=== PATIENT | male | born 1975 | race African-American/Black ===

== ENCOUNTER → 2018-01-20 | Outpatient (REF) | payer OTHER | LOC: M LAB REF 12:20 | DX: Z72.51 High risk heterosexual behavior (principal) | CPT/HCPCS: 86592 ==

== ENCOUNTER → 2018-02-10 | Outpatient (CLI) | payer OTHER | LOC: M OUTALCOH 07:58 | DX: Z03.89 Encounter for observation for other suspected diseases and conditions ruled out (principal) ==

== ENCOUNTER → 2018-05-12 | Outpatient (REF) | payer OTHER ==
[2018-05-16 14:32] LABS: F001-IGE EGG WHITE <0.10 kU/L (Class 0); F004-IGE WHEAT <0.10 kU/L (Class 0); F013-IGE PEANUT <0.10 kU/L (Class 0); F014-IGE SOYBEAN <0.10 kU/L (Class 0); F025-IGE TOMATO <0.10 kU/L (Class 0); F026 IgE PORK <0.10 kU/L (Class 0); F027 IgE BEEF <0.10 kU/L (Class 0); F081-IGE CHEDDAR CHEESE <0.10 kU/L (Class 0); F083 IgE CHICKEN <0.10 kU/L (Class 0)
== END ==
LOC: M LAB REF 12:44
DX: Z91.018 Allergy to other foods (principal)

== ENCOUNTER 2023-04-17 22:34 | Emergency (ER) | payer MEDICAID, OTHER ==
[~2023-04-17] VITALS: Ht 180.3 cm; Wt 110.9 kg
[2023-04-17 22:35] VITALS: TEMP 97.3; O2SAT 98
[2023-04-18 01:55] LABS: BASO # 0.1 10^3/uL (0.0-0.2); BASO % 0.7 % (0.0-1.0); EOS # 0.1 10^3/uL (0.0-0.5); EOS % 0.9 % (0.0-3.0); HEMATOCRIT 46.9 % (42.0-52.0); HEMOGLOBIN 15.1 g/dl (13.5-17.5); LYMPH # 3.3 10^3/uL (1.5-5.0); LYMPH % 32.8 % (24.0-44.0); MEAN CORPUSCULAR HEMOGLOBIN 26.6 pg (27.0-33.0); MEAN CORPUSCULAR HGB CONC 32.2 g/dl (32.0-36.5); MEAN CORPUSCULAR VOLUME 82.7 fl (80.0-96.0); MONO % 10.5 % (2.0-8.0); NEUTROPHILS # 5.5 10^3/uL (1.5-8.5); PLATELET COUNT, AUTOMATED 349 10^3/uL (150-450); RED BLOOD COUNT 5.67 10^6/uL (4.30-6.10)
[2023-04-18 02:51] LABS: CK-MB VALUE MASS 5.7 NG/ML (<3.6)
[2023-04-18 02:53] LABS: ALBUMIN 3.9 G/DL (3.2-5.2); ALKALINE PHOSPHATASE 93 U/L (46-116); ALT/SGPT 98 U/L (7.0-40); AST/SGOT 64 U/L (<34); BILIRUBIN,TOTAL 0.9 MG/DL (0.3-1.2); BLOOD UREA NITROGEN 15 MG/DL (9-23); CALCIUM LEVEL 8.9 MG/DL (8.5-10.1); CARBON DIOXIDE LEVEL 22 MMOL/L (20-31); CHLORIDE LEVEL 109 MMOL/L (98-107); CREATININE FOR GFR 1.34 MG/DL (0.70-1.30); GLOMERULAR FILTRATION RATE > 60.0 (>60); GLUCOSE, FASTING 93 MG/DL (60-100); POTASSIUM SERUM 3.9 MMOL/L (3.5-5.1); SODIUM LEVEL 143 MMOL/L (136-145); TOTAL PROTEIN 6.9 G/DL (5.7-8.2)
[2023-04-18 02:55] LABS: THYROID STIMULATING HORMONE 2.565 uIU/ML (0.55-4.78)
[2023-04-18 02:57] LABS: CPK CREATINE PHOSPHOKINASE 582 U/L (46-171); MB/CK RELATIVE INDEX 0.97 (< OR =4)
[2023-04-18 03:53] LABS: GC DNA AMPLIFICATION NEGATIVE (NEGATIVE)
[2023-04-18 04:30] VITALS: BP 151/84
== END 2023-04-18 04:52 | disposition home or self-care (01) ==
LOC: M ED 22:34
DX: R06.00 Dyspnea, unspecified (principal); R79.89 Other specified abnormal findings of blood chemistry; F17.200 Nicotine dependence, unspecified, uncomplicated

== ENCOUNTER → 2023-10-01 | Outpatient (CLI) | payer OTHER ==
[2023-10-01 11:25] LABS: PROTHROMBIN TIME 33.5 SECONDS (12.5-14.5)
[2023-10-01 11:26] LABS: INR 3.46
== END ==
LOC: M LAB 09:27
PROVIDERS: ATTEND Internal Medicine Cardiovascular Disease
DX: Z95.2 Presence of prosthetic heart valve (principal); Z79.01 Long term (current) use of anticoagulants

== ENCOUNTER → 2023-10-15 | Outpatient (CLI) | payer OTHER ==
[2023-10-15 09:34] LABS: INR 4.09; PROTHROMBIN TIME 38.1 SECONDS (12.5-14.5)
== END ==
LOC: M LAB 08:37
PROVIDERS: ATTEND Internal Medicine Cardiovascular Disease
DX: Z95.2 Presence of prosthetic heart valve (principal)

== ENCOUNTER → 2023-10-29 | Outpatient (CLI) | payer OTHER ==
[2023-10-29 10:57] LABS: INR 4.08
== END ==
LOC: M LAB 09:43
PROVIDERS: ATTEND Internal Medicine Cardiovascular Disease
DX: Z95.2 Presence of prosthetic heart valve (principal)

== ENCOUNTER 2024-01-20 17:55 | Emergency (ER) | payer OTHER ==
[~2024-01-20] VITALS: Ht 180.3 cm; Wt 114.3 kg
[2024-01-20] MEDS ORDERED: WARF-23 (18:05)
[2024-01-20] MEDS ORDERED: ASPI-226 (18:05)
[2024-01-20] MEDS ORDERED: FURO40TA2 (18:05)
[2024-01-20] MEDS ORDERED: CARV12.5 (18:05)
[2024-01-20] MEDS ORDERED: POTA10CA70 (18:05)
[2024-01-20] MEDS ORDERED: VALS1TAB66 (18:05)
[2024-01-20 19:15] LABS: HEPATITIS B SURFACE ANTIBODY NEGATIVE (POSITIVE)
[2024-01-20 19:26] LABS: HEPATITIS B SURFACE ANTIGEN NEGATIVE (NEGATIVE)
[2024-01-20 19:39] LABS: HIV 1&2 SCREEN NEGATIVE (NEGATIVE)
[2024-01-20 19:47] LABS: HEPATITIS C VIRUS ABY INDEX < 0.02 INDEX (<0.8)
[2024-01-20 20:19] LABS: Trichomonas vaginalis (AMP) NOT DETECTED (NEGATIVE)
[2024-01-20 20:42] LABS: GC DNA AMPLIFICATION NEGATIVE (NEGATIVE)
[2024-01-20] MEDS ORDERED: DOXY-323 PO (20:59)
[2024-01-20] MEDS: DOXYCYCLINE HYCLATE 100MG TABLET PO ONE (21:12)
[2024-01-20] MEDS: cefTRIAXone SOD 1GM VIAL IM ONE (21:12)
[2024-01-20] MEDS: LIDOCAINE 1% SDV 5ML VIAL DILUENT ONE (21:12)
[2024-01-20 21:25] VITALS: BP 178/96; TEMP 96.9; O2SAT 100
== END 2024-01-20 21:27 | disposition home or self-care (01) ==
LOC: M ED 17:55
DX: A74.9 Chlamydial infection, unspecified (principal); A59.9 Trichomoniasis, unspecified; E11.9 Type 2 diabetes mellitus without complications; I10 Essential (primary) hypertension; F17.200 Nicotine dependence, unspecified, uncomplicated; Z86.79 Personal history of other diseases of the circulatory system; Z79.82 Long term (current) use of aspirin; Z79.01 Long term (current) use of anticoagulants; Z79.811 Long term (current) use of aromatase inhibitors; Z79.899 Other long term (current) drug therapy
CPT/HCPCS: 86592; 86706; 86780; 86803; 87340; 87389; 87661; 87810; 87850; 96372; 99283; J0696

== ENCOUNTER → 2024-01-20 | Outpatient (REF) | payer OTHER ==
[~2024-01-20] MED LIST: ASPI-226; CARV12.5; DOXY-323 PO; FURO40TA2; POTA10CA70; VALS1TAB66; WARF-23
[2024-01-20 13:38] LABS: CREATININE, URINE 516.4 MG/DL; MAU/CREAT RATIO 5.6 MCG/MG (0.0-30.0)
[2024-01-20 19:22] LABS: HEMOGLOBIN A1c 5.6 % (4.0-6.0)
[2024-01-20 19:41] LABS: ALBUMIN 3.5 G/DL (3.2-5.2); ALKALINE PHOSPHATASE 88 U/L (46-116); ALT/SGPT 27 U/L (7.0-40); AST/SGOT 32 U/L (<34); BILIRUBIN,TOTAL 0.5 MG/DL (0.3-1.2); BLOOD UREA NITROGEN 8 MG/DL (9-23); CALCIUM LEVEL 8.7 MG/DL (8.5-10.1); CARBON DIOXIDE LEVEL 26 MMOL/L (20-31); CHLORIDE LEVEL 108 MMOL/L (98-107); CHOLESTEROL LEVEL 200 MG/DL (<200); CHOLESTEROL RISK RATIO 4.39 (<5); CREATININE FOR GFR 0.97 MG/DL (0.70-1.30); GLOMERULAR FILTRATION RATE > 60.0 (>60); GLUCOSE, FASTING 91 MG/DL (60-100); HDL CHOLESTEROL 45.5 MG/DL (>40); LDL CHOLESTEROL 115.9 MG/DL (<100); NON-HDL-C 154.5 MG/DL; POTASSIUM SERUM 4.4 MMOL/L (3.5-5.1); SODIUM LEVEL 138 MMOL/L (136-145); THYROID STIMULATING HORMONE 2.157 uIU/ML (0.55-4.78); TOTAL PROTEIN 7.1 G/DL (5.7-8.2); TRIGLYCERIDES LEVEL 193 MG/DL (<150)
[2024-01-20 19:42] LABS: TOTAL 25(OH) VITAMIN D 10.4 NG/ML (20.0-100.0)
== END ==
LOC: M LAB REF 12:28
PROVIDERS: ATTEND Physician Assistant
DX: I10 Essential (primary) hypertension (principal)

== ENCOUNTER → 2024-04-08 | Outpatient (CLI) | payer OTHER ==
[2024-04-08 13:33] LABS: INR 3.02; PROTHROMBIN TIME 30.2 SECONDS (12.5-14.5)
== END ==
LOC: M LAB 12:39
PROVIDERS: ATTEND Internal Medicine Cardiovascular Disease
DX: Z95.2 Presence of prosthetic heart valve (principal); Z79.01 Long term (current) use of anticoagulants

== ENCOUNTER → 2024-04-27 | Outpatient (CLI) | payer OTHER ==
[2024-04-27 10:53] LABS: INR 3.41; PROTHROMBIN TIME 33.1 SECONDS (12.5-14.5)
== END ==
LOC: M LAB 10:05
PROVIDERS: ATTEND Internal Medicine Cardiovascular Disease
DX: Z95.2 Presence of prosthetic heart valve (principal); Z79.01 Long term (current) use of anticoagulants

== ENCOUNTER 2024-06-02 09:43 | Day surgery (SDC) | payer OTHER ==
[~2024-06-02] VITALS: Ht 180.3 cm; Wt 114.2 kg
[2024-06-02] MEDS: NS 1,000 ML IV ONE (06:00)
[~2024-06-02 09:43] MED LIST changes: +ASPI81TA26 PO; +CARV12.5 PO; +FURO40TA2 PO; +POTA10TA67 PO; +PX S0.65; +VALS1TAB66 PO; +WARF-22 PO; +lovenox
[2024-06-02] MEDS ORDERED: propofoL 200 MG/20 ML VIAL As Ordered ONE (10:42)
[2024-06-02] MEDS ORDERED: LIDOCAINE 2% 100MG/5ML SDV (FOR ANES.) As Ordered ONE (10:49)
[2024-06-02 11:23] VITALS: BP 172/96; O2SAT 97
== END 2024-06-02 11:37 | disposition home or self-care (01) ==
LOC: M OPP 09:43
PROVIDERS: ATTEND Surgery
DX: Z12.11 Encounter for screening for malignant neoplasm of colon (principal); E11.9 Type 2 diabetes mellitus without complications; I35.9 Nonrheumatic aortic valve disorder, unspecified; F17.200 Nicotine dependence, unspecified, uncomplicated; Z79.01 Long term (current) use of anticoagulants; Z79.82 Long term (current) use of aspirin; Z79.899 Other long term (current) drug therapy

== ENCOUNTER → 2024-07-22 | Outpatient (CLI) | payer OTHER ==
[~2024-07-22] MED LIST changes: -DOXY-323 PO; +DOXY-441 PO
[2024-07-22 09:03] LABS: INR 4.26; PROTHROMBIN TIME 40.4 SECONDS (12.5-14.5)
== END ==
LOC: M LAB 08:03
PROVIDERS: ATTEND Internal Medicine Cardiovascular Disease
DX: Z95.2 Presence of prosthetic heart valve (principal); Z79.01 Long term (current) use of anticoagulants

== ENCOUNTER → 2024-07-29 | Outpatient (REF) | payer OTHER ==
[2024-07-29 20:04] LABS: BASO % 0.6 % (0.0-1.0); EOS # 0.1 10^3/uL (0.0-0.5); EOS % 1.4 % (0.0-3.0); HEMOGLOBIN 15.3 g/dl (13.5-17.5); LYMPH # 1.9 10^3/uL (1.5-5.0); MEAN CORPUSCULAR HEMOGLOBIN 27.7 pg (27.0-33.0); MEAN CORPUSCULAR HGB CONC 31.9 g/dl (32.0-36.5); MONO # 0.7 10^3/uL (0.0-0.8); MONO % 11.1 % (2.0-8.0); NEUTROPHILS # 3.7 10^3/uL (1.5-8.5); NEUTROPHILS % 57.7 % (36.0-66.0); PLATELET COUNT, AUTOMATED 289 10^3/uL (150-450); RED BLOOD COUNT 5.52 10^6/uL (4.30-6.10); WHITE BLOOD COUNT 6.4 10^3/uL (4.0-10.0)
[2024-07-29 20:09] LABS: LIPASE 37 U/L (12-53)
[2024-07-29 20:11] LABS: ALBUMIN 4.1 G/DL (3.2-5.2); ALKALINE PHOSPHATASE 80 U/L (40-129); ALT/SGPT 37 U/L (7.0-40); AST/SGOT 32 U/L (<34); BILIRUBIN,TOTAL 0.5 MG/DL (0.3-1.2); BLOOD UREA NITROGEN 12 MG/DL (9-23); CALCIUM LEVEL 9.5 MG/DL (8.5-10.1); CARBON DIOXIDE LEVEL 29 MMOL/L (20-31); CHLORIDE LEVEL 108 MMOL/L (98-107); GLOMERULAR FILTRATION RATE > 60.0 (>60); GLUCOSE, FASTING 73 MG/DL (60-100); POTASSIUM SERUM 4.8 MMOL/L (3.5-5.1); SODIUM LEVEL 141 MMOL/L (136-145); TOTAL PROTEIN 7.7 G/DL (5.7-8.2)
[2024-07-29 20:40] LABS: HIV 1&2 SCREEN NEGATIVE (NEGATIVE)
[2024-07-29 20:48] LABS: HEPATITIS C VIRUS ABY INDEX 0.03 INDEX (<0.8)
== END ==
LOC: M LAB REF 19:12
PROVIDERS: ATTEND Physician Assistant
DX: Z11.3 Encounter for screening for infections with a predominantly sexual mode of transmission (principal); A64 Unspecified sexually transmitted disease; R10.9 Unspecified abdominal pain

== ENCOUNTER → 2024-07-29 | Outpatient (CLI) | payer OTHER ==
[2024-07-29 18:21] LABS: Trichomonas vaginalis (AMP) NOT DETECTED (NEGATIVE)
[2024-07-29 18:44] LABS: GC DNA AMPLIFICATION NEGATIVE (NEGATIVE)
== END ==
LOC: M RAD 12:15
PROVIDERS: ATTEND Physician Assistant
DX: R10.9 Unspecified abdominal pain (principal); A64 Unspecified sexually transmitted disease; Z11.3 Encounter for screening for infections with a predominantly sexual mode of transmission

== ENCOUNTER → 2024-08-24 | Outpatient (CLI) | payer OTHER ==
[~2024-08-24] MED LIST changes: +ISOVUE-370 76% 100ML VIAL As Ordered ONE
== END ==
LOC: M RAD 09:58
PROVIDERS: ATTEND Physician Assistant
DX: R10.9 Unspecified abdominal pain (principal)
CPT/HCPCS: 74177; Q9967

== ENCOUNTER → 2024-10-26 | Outpatient (CLI) | payer OTHER ==
[~2024-10-26] MED LIST changes: -ISOVUE-370 76% 100ML VIAL As Ordered ONE
[2024-10-26 13:47] LABS: INR 2.98; PROTHROMBIN TIME 30.9 SECONDS (12.5-14.5)
== END ==
LOC: M LAB 13:05
PROVIDERS: ATTEND Internal Medicine Cardiovascular Disease
DX: Z95.2 Presence of prosthetic heart valve (principal)

== ENCOUNTER → 2024-12-06 | Outpatient (CLI) | payer OTHER ==
[2024-12-06 13:14] LABS: INR 3.21; PROTHROMBIN TIME 32.6 SECONDS (12.5-14.5)
== END ==
LOC: M LAB 11:30
PROVIDERS: ATTEND Internal Medicine Cardiovascular Disease
DX: Z51.81 Encounter for therapeutic drug level monitoring (principal); Z79.01 Long term (current) use of anticoagulants; Z95.2 Presence of prosthetic heart valve

== ENCOUNTER → 2025-01-20 | Outpatient (CLI) | payer OTHER ==
[2025-01-20 12:51] LABS: INR 2.86; PROTHROMBIN TIME 29.9 SECONDS (12.5-14.5)
== END ==
LOC: M LAB 11:23
PROVIDERS: ATTEND Internal Medicine Cardiovascular Disease
DX: Z95.2 Presence of prosthetic heart valve (principal); Z79.01 Long term (current) use of anticoagulants

== ENCOUNTER → 2025-03-18 | Outpatient (CLI) | payer OTHER ==
[2025-03-18 10:10] LABS: INR 2.53
== END ==
LOC: M LAB 08:58
PROVIDERS: ATTEND Internal Medicine Cardiovascular Disease
DX: Z79.01 Long term (current) use of anticoagulants (principal); Z95.2 Presence of prosthetic heart valve

== ENCOUNTER → 2025-03-21 | Outpatient (CLI) | payer OTHER ==
[~2025-03-21] MED LIST changes: +PROHANCE 279.3MG/ML 15ML VIAL ONE; +PROHANCE 279.3MG/ML 5ML VIAL ONE
== END ==
LOC: M PLAIMG 10:58
PROVIDERS: ATTEND Physician Assistant
DX: K86.89 Other specified diseases of pancreas (principal)

== ENCOUNTER → 2025-04-15 | Outpatient (CLI) | payer OTHER ==
[~2025-04-15] MED LIST changes: -PROHANCE 279.3MG/ML 15ML VIAL ONE; -PROHANCE 279.3MG/ML 5ML VIAL ONE
[2025-04-15 15:32] LABS: INR 2.2
== END ==
LOC: M PLALAB 13:28
PROVIDERS: ATTEND Internal Medicine Cardiovascular Disease
DX: Z51.81 Encounter for therapeutic drug level monitoring (principal); Z79.01 Long term (current) use of anticoagulants; Z95.2 Presence of prosthetic heart valve

== ENCOUNTER → 2025-04-26 | Outpatient (REF) | payer OTHER ==
[2025-04-26 19:25] LABS: Trichomonas vaginalis (AMP) POSITIVE (NEGATIVE)
[2025-04-26 19:57] LABS: GC DNA AMPLIFICATION NEGATIVE (NEGATIVE)
== END ==
LOC: M LAB REF 17:34
PROVIDERS: ATTEND Student in an Organized Health Care Education/Training Program
DX: Z20.2 Contact with and (suspected) exposure to infections with a predominantly sexual mode of transmission (principal)

== ENCOUNTER → 2025-05-23 | Outpatient (CLI) | payer OTHER ==
[2025-05-23 12:09] LABS: INR 2.87
== END ==
LOC: M LAB 10:48
PROVIDERS: ATTEND Internal Medicine Cardiovascular Disease
DX: Z79.01 Long term (current) use of anticoagulants (principal); Z95.2 Presence of prosthetic heart valve

== ENCOUNTER → 2025-07-04 | Outpatient (CLI) | payer OTHER ==
[2025-07-04 13:34] LABS: INR 2.44
== END ==
LOC: M LAB 12:16
PROVIDERS: ATTEND Internal Medicine Cardiovascular Disease
DX: Z51.81 Encounter for therapeutic drug level monitoring (principal); Z79.01 Long term (current) use of anticoagulants; Z95.2 Presence of prosthetic heart valve

== ENCOUNTER → 2025-07-06 | Outpatient (REF) | payer OTHER ==
[2025-07-06 15:41] LABS: GC DNA AMPLIFICATION NEGATIVE (NEGATIVE)
== END ==
LOC: M LAB REF 13:51
PROVIDERS: ATTEND Physician Assistant
DX: Z11.3 Encounter for screening for infections with a predominantly sexual mode of transmission (principal); A64 Unspecified sexually transmitted disease

== ENCOUNTER → 2025-07-29 | Outpatient (CLI) | payer OTHER | LOC: M EKG 09:26 | PROVIDERS: ATTEND Nurse Practitioner Family | DX: R00.2 Palpitations (principal); Z53.9 Procedure and treatment not carried out, unspecified reason ==

== ENCOUNTER → 2025-08-09 | Outpatient (CLI) | payer OTHER ==
[~2025-08-09] MED LIST changes: +POTA-232 PO; -POTA10TA67 PO
[2025-08-09 13:39] LABS: INR 2.43
== END ==
LOC: M LAB 12:22
PROVIDERS: ATTEND Internal Medicine Cardiovascular Disease
DX: Z79.01 Long term (current) use of anticoagulants (principal); Z95.2 Presence of prosthetic heart valve

== ENCOUNTER → 2025-08-09 | Outpatient (CLI) | payer OTHER | LOC: M SLEEP HO 11:37 | PROVIDERS: ATTEND Nurse Practitioner Family | DX: G47.33 Obstructive sleep apnea (adult) (pediatric) (principal) ==